=== PATIENT | female | born 1955 | race Caucasian/White ===

== ENCOUNTER 2018-06-16 18:13 | Emergency (ER) | payer MEDICARE ==
[~2018-06-16] VITALS: Ht 165.1 cm; Wt 103.0 kg
[2018-06-16] MEDS ORDERED: ASPI81TA50 PO (19:12)
[2018-06-16] MEDS ORDERED: OMEG1CAP38 PO (19:12)
[2018-06-16] MEDS ORDERED: LIRA0.6P2 SQ (19:13)
[2018-06-16] MEDS ORDERED: INSU100I30 SQ (19:26)
[2018-06-16] MEDS ORDERED: OMEP20TA63 PO (19:26)
[2018-06-16] MEDS ORDERED: METF500T9 PO (19:27)
[2018-06-16] MEDS ORDERED: CANA300T PO (19:27)
[2018-06-16] MEDS ORDERED: HYDR50TA6 PO (19:28)
[2018-06-16] MEDS ORDERED: METO50TA4 PO (19:29)
[2018-06-16] MEDS ORDERED: LISI-130 PO (19:29)
[2018-06-16] MEDS ORDERED: KETOROLAC 15 MG/ML VIAL. IM ONE (19:30)
[2018-06-16] MEDS ORDERED: SERT100T PO (19:30)
[2018-06-16] MEDS ORDERED: ORPHENADRINE CITRATE 60 MG/2 ML VIAL. IM ONE (19:30)
[2018-06-16] MEDS ORDERED: DEXAMETHASONE SOD PHOS 20 MG/5 ML VIAL. IM ONE (19:30)
[2018-06-16] MEDS ORDERED: AMLO10TA6 PO (19:31)
[2018-06-16] MEDS ORDERED: CHOL2000 PO (19:31)
[2018-06-16] MEDS ORDERED: LEVO7.5T7 PO (19:31)
[2018-06-16] MEDS ORDERED: LOVA40TA2 PO (19:32)
--- NOTE | 2018-06-16 19:35 | PHYS DOC ---
Past Medical History Past Medical History: Diabetes-Type II Past Surgical History: Cholecystectomy, Hysterectomy Drug Use: None Adult General Chief Complaint Chief Complaint: OTHER COMPLAINTS HPI HPI Patient is a 63 year old female who presents with left back and leg pain. This started yesterday. Patient fell 2-3 days ago landing on her right side. Increased pain with movement of her left side. No loss of bowel or bladder control. No fever. No history of IV drug abuse. No personal history of cancer. No significant relief with home ibuprofen. Pain is mainly in her back and buttocks and radiating down her entire left leg. No problems walking. Review of Systems Review of Systems Constitutional: Denies fever or chills [] Eyes: Denies change in visual acuity, redness, or eye pain [] HENT: Denies nasal congestion or sore throat [] Respiratory: Denies cough or shortness of breath [] Cardiovascular: No chest pain or palpitations[] GI: Denies abdominal pain, nausea, vomiting, bloody stools or diarrhea [] : Denies dysuria or hematuria [] Musculoskeletal: See history of present illness[] Integument: Denies rash or skin lesions [] Neurologic: Denies headache, focal weakness or sensory changes [] Endocrine: Denies polyuria or polydipsia [] All other systems were reviewed and found to be within normal limits, except as documented in this note. Current Medications Current Medications Current Medications Medications (Trade) Dose Ordered Sig/[facility] Start Time Stop Time Status Last Admin Dose Admin Dexamethasone Sodium Phosphate (Decadron) 10 mg 1X ONCE 06/16/18 19:30 06/16/18 19:31 DC 06/16/18 19:52 10 MG Ketorolac Tromethamine (Toradol 15mg Vial) 15 mg 1X ONCE 06/16/18 19:30 06/16/18 19:31 DC 06/16/18 19:51 15 MG Orphenadrine Citrate (Norflex) 60 mg 1X ONCE 06/16/18 19:30 06/16/18 19:31 DC 06/16/18 19:51 60 MG Allergies Allergies Allergies Coded Allergies Type Severity Reaction Last Updated Verified No Known Drug Allergies 06/16/18 No Physical Exam Physical Exam Constitutional: Well developed, well nourished, mild discomfort, non-toxic appearance. [] HENT: Normocephalic, atraumatic, bilateral external ears normal, oropharynx moist, no oral exudates, nose normal. [] Eyes: PERRLA, EOMI, conjunctiva normal, no discharge. [] Neck: Normal range of motion, no tenderness, supple, no stridor. [] Cardiovascular:Heart rate regular rhythm, no murmur [] Lungs & Thorax: Bilateral breath sounds clear to auscultation [] Abdomen: Bowel sounds normal, soft, no tenderness, no masses, no pulsatile masses. [] Skin: Warm, dry, no erythema, no rash. [] Back: Tenderness over the left back as well as predominantly over the left sciatic notch. Patient has full active range of motion. Normal gait. [] Extremities: No tenderness, no cyanosis, no clubbing, ROM intact, no edema. [] Neurologic: Alert and oriented X 3, normal motor function, normal sensory function, no focal deficits noted. [] Psychologic: Affect normal, judgement normal, mood normal. [] Current Patient Data Vital Signs Vital Signs Date Time Temp Pulse Resp B/P (MAP) Pulse Ox O2 Delivery O2 Flow Rate FiO2 06/16/18 18:57 97.9 76 20 161/82 (108) 94 Room Air 97.9 EKG EKG [] Radiology/Procedures Radiology/Procedures Lumbar spine x-ray shows no acute fracture or subluxation. There is degenerative disc disease of L5-S1 and L4-L5.[] Course & Med Decision Making Course & Med Decision Making Pertinent Labs and Imaging studies reviewed. (See chart for details) ED course: Patient arrived, was placed in bed, tolerated exam well. There was some pain relief achieved with the medications administered. Patient was transported to and from x-ray with any complications. After the return of the imaging findings, these were discussed with the patient and her who voiced understanding. All questions were answered. Patient was discharged in improved condition. Medical decision making: There is no evidence of fracture or dislocation or subluxation. No evidence of cauda equina or any neurologic compromise.[] Dragon Disclaimer Dragon Disclaimer This electronic medical record was generated, in whole or in part, using a voice recognition dictation system. Departure Departure Impression: Primary Impression: Back pain with sciatica Disposition: 01 HOME, SELF-CARE Condition: GOOD Referrals: NATALIE WILSON (PCP) Follow-up with your patient in 2 days. Patient Instructions: Back Pain, Adult, Sciatica Additional Instructions: Follow-up with your regular doctor in 2 days. Return to the ER if worsening pain , weakness, loss of bowel or bladder control, or any other concerns. Scripts Dexamethasone (Decadron) 6 Mg Tablet 6 MG PO DAILY for 5 Days, #5 TAB Prov: QUEENIE MEYERS DO 06/16/18 Orphenadrine Citrate (ORPHENADRINE CITRATE) 100 Mg Tablet.er 100 MG PO BID, #20 TAB.SR Prov: QUEENIE MEYERS DO 06/16/18 Meloxicam (MELOXICAM) 7.5 Mg Tablet 7.5 MG PO DAILY, #20 TAB Prov: QUEENIE MEYERS DO 06/16/18 QUEENIE MEYERS DO Jun 16, 2018 19:35
[2018-06-16 20:30] VITALS: BP 157/72
[2018-06-16] MEDS ORDERED: MELO7.5T29 PO (20:36)
[2018-06-16] MEDS ORDERED: DEXA6TAB6 PO (20:36)
[2018-06-16] MEDS ORDERED: ORPH100T PO (20:36)
--- NOTE | 2018-06-16 21:11 | RAD ---
Lumbar spine, 5 views, 06/16/2018: HISTORY: Low back pain, fall The lumbar vertebral heights are well-maintained. There is moderate disc space narrowing and marginal spurring at multiple levels. No fracture or subluxation is evident. There is no evidence of spondylolysis. A radiopacity overlying the left paraspinous region raises the possibility of a left renal calculus. IMPRESSION: 1. Mild to moderate scattered degenerative changes. 2. No acute lumbar spine abnormality is detected. Electronically signed by: Vega Howard MD (06/16/2018 9:07 PM) [facility]
== END 2018-06-16 20:45 | disposition home or self-care (01) ==
LOC: ER 18:13
DX: M54.42 Lumbago with sciatica, left side (principal); E11.9 Type 2 diabetes mellitus without complications; Z90.49 Acquired absence of other specified parts of digestive tract; Z90.710 Acquired absence of both cervix and uterus
CPT/HCPCS: 72110; 96372; 99284; J1100; J1885; J2360